=== PATIENT | male | born 1935 | race Caucasian/White ===

== ENCOUNTER 2020-01-07 12:23 | Inpatient (IN) ==
[2020-01-07] MEDS ORDERED: ASPIRIN 325 MG TABLET ONE (12:37)
[2020-01-07] MEDS ORDERED: ENOXAPARIN 80 MG/0.8 ML SYRINGE SUBCUT ONE (12:38)
[2020-01-07] MEDS ORDERED: ASPIRIN 325 MG TABLET PO STA (12:40)
[2020-01-07] MEDS ORDERED: ENOXAPARIN 100 MG/ML SYRINGE SUBCUT STA (12:40)
[2020-01-07] MEDS ORDERED: NITROGLYCERIN 2% OINT 1 INCH/GM PACK TOP STA (12:40)
[2020-01-07] MEDS ORDERED: NITROGLYCERIN 2% OINT 1 INCH/GM PACK TOP ONE (12:41)
[2020-01-07] MEDS ORDERED: LIDOCAINE 1% 20 ML VIAL ONE (12:43)
[2020-01-07] MEDS ORDERED: fentaNYL 100 MCG/2 ML VIAL ONE (12:43)
[2020-01-07] MEDS ORDERED: HEPARIN/NACL 0.9% 2 UNITS/ML 1,500 ML IV ONE (12:43)
[2020-01-07] MEDS ORDERED: MIDAZOLAM 2 MG/2 ML VIAL ONE (12:43)
[2020-01-07 12:47] LABS: Basophils % 0.5 % (0.0-0.8); Eosinophils # 0.1 10*3/uL (0.0-0.87); Eosinophils % 1.2 % (0.00-10.9); Hematocrit 48.8 VOL% (42.0-52.0); Hemoglobin 15.4 GM/DL (14.0-18.0); Immature Granulocytes % 0.4 %; Immature Granulocytes Absolute 0.03 #; Lymphocytes # 1.9 10*3/uL (1.4-4.0); Lymphocytes % 25.1 % (21.2-54.2); Mean Corpuscular HGB Conc 31.6 GM/DL (32-36); Mean Corpuscular Volume 96.3 FL (87-102); Mean Platelet Volume 11.1 FL (9.6-12.0); Monocytes % 7.4 % (1.7-12.7); Neutrophils % 65.4 % (38.7-73.9); Platelet Count 182 T/CUMM (130-400); Red Blood Count 5.07 MC/CUMM (3.8-5.5); White Blood Count 7.4 T/CUMM (4-12)
[2020-01-07] MEDS ORDERED: TICAGRELOR 90 MG TABLET ONE (12:52)
[2020-01-07] MEDS ORDERED: PROMETHAZINE 25 MG TABLET PO PRN (13:11)
[2020-01-07] MEDS ORDERED: MORPHINE 4 MG/1 ML VIAL IV PRN (13:11)
[2020-01-07] MEDS ORDERED: ONDANSETRON 4 MG/2 ML VIAL IV PRN (13:11)
[2020-01-07] MEDS ORDERED: LACTULOSE 20 GM/30 ML UDCUP PO PRN (13:11)
[2020-01-07] MEDS ORDERED: POTASSIUM CHLORIDE 20 MEQ TABLET PO PRN (13:11)
[2020-01-07] MEDS ORDERED: guaiFENesin/DM ER 600-30 MG TABLET PO PRN (13:11)
[2020-01-07] MEDS ORDERED: MAGNESIUM SULF RIDER 2 GM in PREMIX 1 EACH IV PRN (13:11)
[2020-01-07] MEDS ORDERED: DOCUSATE SODIUM 100 MG CAPSULE PO PRN (13:11)
[2020-01-07] MEDS ORDERED: MAGNESIUM SULF RIDER 4 GM in PREMIX 1 EACH IV PRN (13:11)
[2020-01-07] MEDS ORDERED: diphenhydrAMINE CAP 25 MG CAPSULE PO PRN (13:11)
[2020-01-07 13:13] LABS: Albumin 4.6 G/DL (3.4-5.0); Bilirubin,Total 0.7 MG/DL (0.2-1.0); Calcium 9.5 MG/DL (8.5-10.1); Osmolality,Calculated 276.8 MOS/KG (273-304); Total Protein 7.8 G/DL (6.4-8.3)
[2020-01-07] MEDS ORDERED: NITROGLYCERIN DRIP 50 MG/250 ML BOTTLE IV ONE (13:18)
[2020-01-07] MEDS ORDERED: EPTIFIBATIDE 20,000 MCG/10 ML VIAL ONE ×2 (13:28→13:32)
[2020-01-07] MEDS ORDERED: EPTIFIBATIDE 75 MG/100 ML BOTTLE IV ONE (13:32)
[2020-01-07] MEDS ORDERED: EPTIFIBATIDE 75 MG/100 ML BOTTLE IV SCH (13:36)
[2020-01-07 14:07] LABS: Thyroid Stimulating Hormone 3.97 uIU/ml (0.358-3.74); VLDL CHOLESTEROL 39.4 MG/DL
[2020-01-07] MEDS ORDERED: SODIUM CHLORIDE 0.9% 1,000 ML IV SCH (14:30)
[2020-01-07] MEDS ORDERED: hydrALAZINE 20 MG/1 ML VIAL IV PRN (15:18)
[2020-01-07] MEDS: METOPROLOL TARTRATE 25 MG TABLET PO SCH ×2 (15:38→21:20)
[2020-01-07] MEDS: ZALEPLON 5 MG CAPSULE PO PRN (21:24)
[2020-01-08] MEDS: ACETAMINOPHEN 325 MG TABLET PO PRN ×2 (03:01→21:11)
[2020-01-08 05:44] LABS: Basophils % 0.2 % (0.0-0.8); Eosinophils # 0.1 10*3/uL (0.0-0.87); Eosinophils % 0.9 % (0.00-10.9); Hematocrit 43.1 VOL% (42.0-52.0); Immature Granulocytes % 0.6 %; Immature Granulocytes Absolute 0.05 #; Lymphocytes # 1.4 10*3/uL (1.4-4.0); Lymphocytes % 17.5 % (21.2-54.2); Mean Corpuscular HGB Conc 32.5 GM/DL (32-36); Mean Corpuscular Volume 93.9 FL (87-102); Mean Platelet Volume 11.1 FL (9.6-12.0); Neutrophils % 70.8 % (38.7-73.9); Platelet Count 164 T/CUMM (130-400); Red Blood Count 4.59 MC/CUMM (3.8-5.5); Red Cell Distribution Width 13.1 % (9.3-17.3); White Blood Count 8.1 T/CUMM (4-12)
[2020-01-08 06:34] LABS: CKMB % 9.1 %; Calcium 8.8 MG/DL (8.5-10.1); Osmolality,Calculated 273.8 MOS/KG (273-304)
[2020-01-08 06:37] LABS: Troponin I 43.9 NG/ML (0.00-0.045)
[2020-01-08] MEDS: ROSUVASTATIN 20 MG TABLET PO SCH (08:09)
[2020-01-08] MEDS: ASPIRIN EC 81 MG TABLET PO SCH (08:09)
[2020-01-08] MEDS: TICAGRELOR 90 MG TABLET PO SCH ×2 (08:10→21:11)
[2020-01-08] MEDS: PANTOPRAZOLE 40 MG TABLET PO SCH (08:10)
[2020-01-08] MEDS: LOSARTAN 25 MG TABLET PO SCH (12:38)
[2020-01-08] MEDS: ZALEPLON 5 MG CAPSULE PO PRN (21:12)
[2020-01-09 05:43] LABS: CKMB % 2.6 %; Calcium 9.1 MG/DL (8.5-10.1); Osmolality,Calculated 276.7 MOS/KG (273-304)
[2020-01-09 05:45] LABS: Troponin I 19.2 NG/ML (0.00-0.045)
[2020-01-09] MEDS: LOSARTAN 25 MG TABLET PO SCH (08:03)
[2020-01-09] MEDS: TICAGRELOR 90 MG TABLET PO SCH ×2 (08:03→20:35)
[2020-01-09] MEDS: ASPIRIN EC 81 MG TABLET PO SCH (08:03)
[2020-01-09] MEDS: ROSUVASTATIN 20 MG TABLET PO SCH (08:04)
[2020-01-09] MEDS: PANTOPRAZOLE 40 MG TABLET PO SCH (08:04)
[2020-01-10] MEDS: ROSUVASTATIN 20 MG TABLET PO SCH (08:57)
[2020-01-10] MEDS: ASPIRIN EC 81 MG TABLET PO SCH (08:57)
[2020-01-10] MEDS: LOSARTAN 25 MG TABLET PO SCH (08:57)
[2020-01-10] MEDS: PANTOPRAZOLE 40 MG TABLET PO SCH (08:57)
[2020-01-10] MEDS: TICAGRELOR 90 MG TABLET PO SCH (09:16)
[2020-01-10 13:30] VITALS: BP 110/56
== END 2020-01-10 15:05 | disposition home or self-care (01) | DRG 247 ==
LOC: N.ED 12:23 → N.EDINP 12:43 → N.ICU 14:27 → N.TELES 01-09 13:49
PROVIDERS: ADMIT Internal Medicine Cardiovascular Disease; ATTEND Internal Medicine Cardiovascular Disease
PROC: CLCCHCL (ICD-10-PCS; 2020-01-07 13:15)

== ENCOUNTER 2022-12-28 23:40 | Inpatient (IN) ==
[2022-12-29] MEDS ORDERED: SILVER NITRATE STICK 1 EACH TOP ONE ×3 (00:24→00:30)
[2022-12-29] MEDS ORDERED: HALOPERIDOL 5 MG/ML AMP IV STA (00:40)
[2022-12-29] MEDS ORDERED: KETOROLAC 30 MG/1 ML VIAL IM STA (00:40)
[2022-12-29] MEDS ORDERED: SODIUM CHLORIDE 0.9% 1,000 ML IV STA (00:40)
[2022-12-29] MEDS ORDERED: LORazepam 2 MG/1 ML VIAL IV STA (00:40)
[2022-12-29] MEDS ORDERED: KETOROLAC 30 MG/1 ML VIAL IV STA (00:44)
[2022-12-29 01:10] LABS: Basophils % 0.2 % (0.0-0.8); Eosinophils # 0.1 10*3/uL (0.0-0.87); Eosinophils % 1.4 % (0.00-10.9); Hematocrit 38.8 VOL% (42.0-52.0); Hemoglobin 12.4 GM/DL (14.0-18.0); Immature Granulocytes % 0.2 %; Immature Granulocytes Absolute 0.02 #; Lymphocytes # 1.7 10*3/uL (1.4-4.0); Lymphocytes % 19.9 % (21.2-54.2); Mean Corpuscular Volume 95.8 FL (87-102); Mean Platelet Volume 11.9 FL (9.6-12.0); Monocytes # 0.9 10*3/uL (0.11-0.8); Monocytes % 10.3 % (1.7-12.7); Platelet Count 182 T/CUMM (130-400); Red Blood Count 4.05 MC/CUMM (3.8-5.5); Red Cell Distribution Width 13.2 % (9.3-17.3); White Blood Count 8.7 T/CUMM (4-12)
[2022-12-29] MEDS ORDERED: diphenhydrAMINE 50 MG/1 ML VIAL IV STA (01:15)
[2022-12-29 01:23] LABS: PT Patient Result 11.1 SECS (10.1-12.1); Partial Thromboplastin Time 28.5 SECS (23.7-32.9)
[2022-12-29 01:32] LABS: Albumin 4.4 G/DL (3.4-5.0); Bilirubin,Total 0.4 MG/DL (0.20-1.00); Calcium 9.8 MG/DL (8.5-10.1); Osmolality,Calculated 289.1 MOS/KG (273-304); Potassium 5.4 MMOL/L (3.5-5.1); Total Protein 7.3 G/DL (6.4-8.2)
[2022-12-29] MEDS ORDERED: TISSUE ADHESIVE 1 EACH APPLICATOR TOP ONE ×2 (01:36→01:38)
[2022-12-29 02:11] LABS: Mucus,Urine Occasional /LPF (Occasional); RBC,Urine 5 /HPF (0-4)
[2022-12-29 02:12] LABS: Bilirubin,Urine Negative (Negative); Blood, Urine Moderate mg/dL (Negative); Glucose,Urine (UA) Negative (Negative); Ketones,Urine Negative (Negative); Nitrite,Urine Negative (Negative); Protein,Urine Negative (Negative); Urine Appearance Clear (Clear); Urine Color Yellow (Yellow); Urine Specific Gravity 1.015 (1.001-1.035)
[2022-12-29 02:32] LABS: Barbiturates Screen,Urine Negative (Negative); Benzodiazepines Screen,Urine Negative (Negative); Cannabinoid Screen,Urine Negative (Negative); Opiate Screen,Urine Negative (Negative); Phencyclidine Screen,Urine Negative (Negative)
[2022-12-29] MEDS ORDERED: hydrALAZINE 20 MG/1 ML VIAL IV PRN (06:05)
[2022-12-29] MEDS ORDERED: ONDANSETRON 4 MG/2 ML VIAL IV PRN (06:05)
[2022-12-29] MEDS ORDERED: DICLOFENAC 1% GEL 100 GM TUBE TOP PRN (06:11)
[2022-12-29] MEDS ORDERED: ALUMINUM/MAGNES/SIMETH MAX STR 30 ML UDCUP PO PRN (06:21)
[2022-12-29] MEDS: SODIUM CHLORIDE 0.9% 1,000 ML IV SCH ×2 (07:33→21:55)
[2022-12-29] MEDS ORDERED: SODIUM POLYSTYRENE SULFATE 15 GM/60 ML BOTTLE PO STA (08:30)
[2022-12-29] MEDS: lisinopriL 10 MG TABLET PO SCH (13:41)
[2022-12-29] MEDS: CYANOCOBALAMIN 500 MCG TABLET PO SCH (13:41)
[2022-12-29] MEDS: FOLIC ACID 1 MG TABLET PO SCH (13:41)
[2022-12-29] MEDS: DIVALPROEX SPRINKLE 125 MG CAPSULE PO SCH ×2 (13:41→21:47)
[2022-12-29] MEDS: ENOXAPARIN 40 MG/0.4 ML SYRINGE SUBCUT SCH (13:45)
[2022-12-29] MEDS: QUEtiapine 25 MG TABLET PO SCH ×2 (16:29→21:48)
[2022-12-29] MEDS: traZODone 50 MG TABLET PO SCH (21:47)
[2022-12-29] MEDS: MELATONIN 3 MG TABLET PO SCH (21:47)
[2022-12-30] MEDS: LORazepam 2 MG/1 ML VIAL IV PRN (02:08)
[2022-12-30 05:31] LABS: Basophils % 0.2 % (0.0-0.8); Eosinophils # 0.1 10*3/uL (0.0-0.87); Eosinophils % 0.6 % (0.00-10.9); Hematocrit 34.9 VOL% (42.0-52.0); Hemoglobin 11.4 GM/DL (14.0-18.0); Immature Granulocytes % 0.4 %; Immature Granulocytes Absolute 0.04 #; Lymphocytes % 10.9 % (21.2-54.2); Mean Corpuscular HGB Conc 32.7 GM/DL (32-36); Mean Corpuscular Volume 95.4 FL (87-102); Mean Platelet Volume 11.7 FL (9.6-12.0); Monocytes # 1.2 10*3/uL (0.11-0.8); Monocytes % 12.8 % (1.7-12.7); Neutrophils % 75.1 % (38.7-73.9); Platelet Count 154 T/CUMM (130-400); Red Blood Count 3.66 MC/CUMM (3.8-5.5); Red Cell Distribution Width 13.2 % (9.3-17.3); White Blood Count 9.01 T/CUMM (4-12)
[2022-12-30 06:06] LABS: Albumin 3.4 G/DL (3.4-5.0); Bilirubin,Total 0.8 MG/DL (0.20-1.00); Calcium 8.8 MG/DL (8.5-10.1); Potassium 4.2 MMOL/L (3.5-5.1); Total Protein 6.3 G/DL (6.4-8.2)
[2022-12-30] MEDS: FOLIC ACID 1 MG TABLET PO SCH (09:03)
[2022-12-30] MEDS: DIVALPROEX SPRINKLE 125 MG CAPSULE PO SCH ×2 (09:12→22:31)
[2022-12-30] MEDS: ENOXAPARIN 40 MG/0.4 ML SYRINGE SUBCUT SCH (09:12)
[2022-12-30] MEDS: CYANOCOBALAMIN 500 MCG TABLET PO SCH (09:13)
[2022-12-30] MEDS: QUEtiapine 25 MG TABLET PO SCH ×2 (09:13→22:31)
[2022-12-30] MEDS: lisinopriL 10 MG TABLET PO SCH (09:13)
[2022-12-30] MEDS ORDERED: ACETAMINOPHEN 325 MG/10.15 ML UDCUP PO PRN (15:41)
[2022-12-30] MEDS: DEXTROSE 5% NACL 0.45% 1,000 ML IV SCH (15:54)
[2022-12-30] MEDS: MELATONIN 3 MG TABLET PO SCH (22:31)
[2022-12-30] MEDS: traZODone 50 MG TABLET PO SCH (22:31)
[2022-12-31] MEDS: DEXTROSE 5% NACL 0.45% 1,000 ML IV SCH ×2 (05:26→17:02)
[2022-12-31 06:43] LABS: Basophils % 0.2 % (0.0-0.8); Eosinophils % 0.2 % (0.00-10.9); Hematocrit 36.5 VOL% (42.0-52.0); Hemoglobin 11.7 GM/DL (14.0-18.0); Immature Granulocytes % 0.8 %; Immature Granulocytes Absolute 0.12 #; Lymphocytes % 6.9 % (21.2-54.2); Mean Corpuscular HGB Conc 32.1 GM/DL (32-36); Mean Corpuscular Volume 94.3 FL (87-102); Mean Platelet Volume 12.1 FL (9.6-12.0); Monocytes # 1.6 10*3/uL (0.11-0.8); Monocytes % 11.3 % (1.7-12.7); Neutrophils % 80.6 % (38.7-73.9); Platelet Count 172 T/CUMM (130-400); Red Blood Count 3.87 MC/CUMM (3.8-5.5); Red Cell Distribution Width 13.3 % (9.3-17.3); White Blood Count 14.15 T/CUMM (4-12)
[2022-12-31 07:07] LABS: Albumin 3.3 G/DL (3.4-5.0); Bilirubin,Total 0.7 MG/DL (0.20-1.00); Calcium 8.8 MG/DL (8.5-10.1); Osmolality,Calculated 294.6 MOS/KG (273-304); Potassium 4.2 MMOL/L (3.5-5.1); Total Protein 6.5 G/DL (6.4-8.2)
[2022-12-31] MEDS: ENOXAPARIN 40 MG/0.4 ML SYRINGE SUBCUT SCH (09:03)
[2022-12-31] MEDS: DIVALPROEX SPRINKLE 125 MG CAPSULE PO SCH ×2 (09:03→21:40)
[2022-12-31] MEDS: FOLIC ACID 1 MG TABLET PO SCH (09:04)
[2022-12-31] MEDS: QUEtiapine 25 MG TABLET PO SCH ×2 (09:04→21:40)
[2022-12-31] MEDS: CYANOCOBALAMIN 500 MCG TABLET PO SCH (09:04)
[2022-12-31] MEDS: lisinopriL 10 MG TABLET PO SCH (09:04)
[2022-12-31] MEDS: LORazepam 2 MG/1 ML VIAL IV PRN (14:59)
[2022-12-31] MEDS: HALOPERIDOL 5 MG/ML AMP IM PRN (17:00)
[2022-12-31] MEDS: traZODone 50 MG TABLET PO SCH (21:40)
[2022-12-31] MEDS: MELATONIN 3 MG TABLET PO SCH (21:40)
[2023-01-01 04:54] LABS: Basophils % 0.2 % (0.0-0.8); Eosinophils # 0.1 10*3/uL (0.0-0.87); Eosinophils % 1.1 % (0.00-10.9); Hematocrit 33.3 VOL% (42.0-52.0); Hemoglobin 10.8 GM/DL (14.0-18.0); Immature Granulocytes % 0.8 %; Immature Granulocytes Absolute 0.09 #; Lymphocytes % 8.5 % (21.2-54.2); Mean Corpuscular HGB Conc 32.4 GM/DL (32-36); Mean Corpuscular Volume 94.9 FL (87-102); Monocytes # 1.3 10*3/uL (0.11-0.8); Neutrophils % 78.4 % (38.7-73.9); Platelet Count 147 T/CUMM (130-400); Red Blood Count 3.51 MC/CUMM (3.8-5.5); Red Cell Distribution Width 13.3 % (9.3-17.3); White Blood Count 11.82 T/CUMM (4-12)
[2023-01-01 05:21] LABS: Albumin 2.7 G/DL (3.4-5.0); Bilirubin,Total 0.5 MG/DL (0.20-1.00); Calcium 8.3 MG/DL (8.5-10.1); Osmolality,Calculated 291.5 MOS/KG (273-304); Potassium 3.8 MMOL/L (3.5-5.1); Total Protein 5.8 G/DL (6.4-8.2)
[2023-01-01] MEDS: DEXTROSE 5% NACL 0.45% 1,000 ML IV SCH ×2 (08:20→19:23)
[2023-01-01] MEDS: QUEtiapine 25 MG TABLET PO SCH ×2 (09:28→22:17)
[2023-01-01] MEDS: FOLIC ACID 1 MG TABLET PO SCH (09:28)
[2023-01-01] MEDS: DIVALPROEX SPRINKLE 125 MG CAPSULE PO SCH ×2 (09:28→22:45)
[2023-01-01] MEDS: ENOXAPARIN 40 MG/0.4 ML SYRINGE SUBCUT SCH (09:28)
[2023-01-01] MEDS: lisinopriL 10 MG TABLET PO SCH (09:28)
[2023-01-01] MEDS: CYANOCOBALAMIN 500 MCG TABLET PO SCH (09:28)
[2023-01-01] MEDS: LORazepam 2 MG/1 ML VIAL IV PRN ×3 (09:48→19:47)
[2023-01-01] MEDS: HALOPERIDOL 5 MG/ML AMP IM PRN (18:33)
[2023-01-01] MEDS: MELATONIN 3 MG TABLET PO SCH (22:17)
[2023-01-01] MEDS: traZODone 50 MG TABLET PO SCH (22:17)
[2023-01-02] MEDS: HALOPERIDOL 5 MG/ML AMP IM PRN (03:18)
[2023-01-02 04:05] LABS: Basophils % 0.1 % (0.0-0.8); Eosinophils # 0.2 10*3/uL (0.0-0.87); Hematocrit 32.8 VOL% (42.0-52.0); Hemoglobin 10.8 GM/DL (14.0-18.0); Immature Granulocytes % 0.6 %; Immature Granulocytes Absolute 0.06 #; Lymphocytes # 0.7 10*3/uL (1.4-4.0); Lymphocytes % 6.9 % (21.2-54.2); Mean Corpuscular HGB Conc 32.9 GM/DL (32-36); Mean Corpuscular Volume 92.9 FL (87-102); Mean Platelet Volume 11.5 FL (9.6-12.0); Monocytes % 10.6 % (1.7-12.7); Neutrophils % 79.8 % (38.7-73.9); Platelet Count 152 T/CUMM (130-400); Red Blood Count 3.53 MC/CUMM (3.8-5.5); Red Cell Distribution Width 13.2 % (9.3-17.3); White Blood Count 9.65 T/CUMM (4-12)
[2023-01-02 04:31] LABS: Albumin 2.8 G/DL (3.4-5.0); Bilirubin,Total 0.6 MG/DL (0.20-1.00); Calcium 8.6 MG/DL (8.5-10.1); Osmolality,Calculated 282.3 MOS/KG (273-304); Potassium 3.7 MMOL/L (3.5-5.1); Total Protein 5.9 G/DL (6.4-8.2)
[2023-01-02 08:10] VITALS: BP 110/82
[2023-01-02] MEDS: DEXTROSE 5% NACL 0.45% 1,000 ML IV SCH (08:24)
[2023-01-02] MEDS: DIVALPROEX SPRINKLE 125 MG CAPSULE PO SCH (08:59)
[2023-01-02] MEDS: QUEtiapine 25 MG TABLET PO SCH (09:01)
[2023-01-02] MEDS: FOLIC ACID 1 MG TABLET PO SCH (09:01)
[2023-01-02] MEDS: lisinopriL 10 MG TABLET PO SCH (09:01)
[2023-01-02] MEDS: ENOXAPARIN 40 MG/0.4 ML SYRINGE SUBCUT SCH (09:01)
[2023-01-02] MEDS: CYANOCOBALAMIN 500 MCG TABLET PO SCH (09:01)
== END 2023-01-02 11:55 | DRG 57 ==
LOC: N.ED 23:40 → N.EDINP 23:40 → SUATTDRO 12-29 06:00 → N.EDINP 12-29 14:28 → N.2W 12-29 15:09
PROVIDERS: ADMIT Family Medicine; ATTEND Hospitalist